=== PATIENT | female | born 1965 | race Two or more races ===

== ENCOUNTER 2018-09-26 18:34 | Emergency (ER) | payer MEDICAID ==
[~2018-09-26] VITALS: Ht 152.4 cm; Wt 72.6 kg
[2018-09-26 19:05] VITALS: BP 135/56
[2018-09-26] MEDS ORDERED: IBUPROFEN 800 MG TAB PO ONE (22:45)
[2018-09-26] MEDS ORDERED: ACETAMINOPHEN 500 MG TAB PO ONE (22:45)
== END 2018-09-26 23:20 | disposition home or self-care (01) ==
LOC: ER 18:34
DX: M62.830 Muscle spasm of back (principal); M25.521 Pain in right elbow; V43.62XA Car passenger injured in collision with other type car in traffic accident, initial encounter; Y93.I9 Activity, other involving external motion; Y92.488 Other paved roadways as the place of occurrence of the external cause; Y99.8 Other external cause status